=== PATIENT | female | born 1950 | race Caucasian/White ===

== ENCOUNTER → 2023-10-21 07:47 | Outpatient (REF) | payer MEDICARE, OTHER, SELFPAY | LOC: HWRAD 07:47 | PROVIDERS: ATTENDING PHYSICIAN Internal Medicine; FAMILY PHYSICIAN Family Medicine | DX: I10 Essential (primary) hypertension (principal) | CPT/HCPCS: 93975 ==

== ENCOUNTER 2024-12-30 16:11 | Emergency (ER) | payer SELFPAY ==
[2024-12-30 16:13] VITALS: BP 118/80
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
[2024-12-30 17:26] VITALS: BP 173/91; BMI 25.5
[2024-12-30] MEDS: LR 1000 IV (17:53)
[2024-12-30 17:59] LABS: Hematocrit 34.7 % (37.0-47.0); Hemoglobin 12.6 g/dL (12.0-16.0); Mean Corp Hgb Conc. 36.3 g/dL (33.0-37.0); Mean Corpuscular Volume 79.4 fL (81.0-99.0); Platelet Count 261 10^3/uL (130-400); Red Cell Dist. Width 13.0 % (11.5-14.5)
[2024-12-30 18:07] LABS: INR 1.06; PT 14.3 Sec (11.4-14.6)
[2024-12-30 18:08] LABS: APTT 27.7 Sec (23.4-35.0)
[2024-12-30 18:14] LABS: ALT (SGPT) 48 U/L (0-35); AST (SGOT) 85 U/L (14-36); Albumin 4.9 g/dl (3.5-5.0); Alkaline Phosphatase 72 U/L (38-126); Blood Urea Nitrogen 21 mg/dl (7-17); Calcium 9.4 mg/dl (8.4-10.2); Carbon Dioxide 27 mmol/L (22-30); Chloride 86 mmol/L (98-107); Estimated Creatinine Clearance 53 ml/min; Glucose 183 mg/dl (70-99); Potassium 4.0 mmol/L (3.5-5.1); Sodium 123 mmol/L (135-145); Total Protein 7.4 g/dl (6.3-8.2); eGFR > 60.00
[2024-12-30 19:43] VITALS: BP 158/89
[2024-12-30] MEDS: MORPHINE SULFATE 2 MG IV (19:55)
== END 2024-12-30 21:15 | disposition other institution (70) ==
LOC: EMR 16:11
PROVIDERS: EMERGENCY PHYSICIAN Emergency Medicine; FAMILY PHYSICIAN Family Medicine
DX: S22.42XA Multiple fractures of ribs, left side, initial encounter for closed fracture (principal); S42.032A Displaced fracture of lateral end of left clavicle, initial encounter for closed fracture; S12.500A Unspecified displaced fracture of sixth cervical vertebra, initial encounter for closed fracture; S12.600A Unspecified displaced fracture of seventh cervical vertebra, initial encounter for closed fracture; S62.606A Fracture of unspecified phalanx of right little finger, initial encounter for closed fracture; S32.018A Other fracture of first lumbar vertebra, initial encounter for closed fracture; S22.20XA Unspecified fracture of sternum, initial encounter for closed fracture; S12.601A Unspecified nondisplaced fracture of seventh cervical vertebra, initial encounter for closed fracture; S60.051A Contusion of right little finger without damage to nail, initial encounter; S30.1XXA Contusion of abdominal wall, initial encounter; N13.30 Unspecified hydronephrosis; N32.89 Other specified disorders of bladder; V43.62XA Car passenger injured in collision with other type car in traffic accident, initial encounter; Y92.410 Unspecified street and highway as the place of occurrence of the external cause; I10 Essential (primary) hypertension; Z98.890 Other specified postprocedural states
CPT/HCPCS: 99285; 96361; 96374; 70450; 71260; 72125; 74177; 80053; 85027; 85610; 85730; 93005; Q9967